=== PATIENT | female | born 1970 | race African-American/Black ===

== ENCOUNTER 2017-05-06 05:02 | Emergency (ER) | payer MEDICAID ==
[2015-08-08 09:00] VITALS: BMI 17.7
[~2017-05-06 05:02] MED LIST: ADVIL PM CAPLET1 TAB PO; ATIVAN0.5 MG PO; KLONOPIN0.5 MG PO
== END 2017-05-06 06:15 | disposition home or self-care (01) ==
LOC: D.ER 05:02
DX: S93.401A Sprain of unspecified ligament of right ankle, initial encounter (principal); X58.XXXA Exposure to other specified factors, initial encounter; Y93.89 Activity, other specified; Y92.019 Unspecified place in single-family (private) house as the place of occurrence of the external cause

== ENCOUNTER 2017-09-14 09:39 | Emergency (ER) | payer MEDICAID ==
[2015-08-08 09:00] VITALS: BMI 17.7
== END 2017-09-14 11:29 | disposition home or self-care (01) ==
LOC: D.ER 09:39
DX: M25.511 Pain in right shoulder (principal); S59.901A Unspecified injury of right elbow, initial encounter; W19.XXXA Unspecified fall, initial encounter; Y93.89 Activity, other specified; Y92.89 Other specified places as the place of occurrence of the external cause; S69.91XA Unspecified injury of right wrist, hand and finger(s), initial encounter; F17.200 Nicotine dependence, unspecified, uncomplicated

== ENCOUNTER 2017-10-31 02:57 | Emergency (ER) | payer MEDICAID ==
[2015-08-08 09:00] VITALS: BMI 17.7
[2017-10-31 03:33] LABS: APPEARANCE CLEAR (CLEAR); BILIRUBIN NEGATIVE (NEGATIVE); COLOR YELLOW (YELLOW); GLUCOSE NEGATIVE (NEGATIVE); KETONE NEGATIVE (NEGATIVE); NITRITE NEGATIVE (NEGATIVE); PROTEIN NEGATIVE (NEGATIVE); SPECIFIC GRAVITY 1.015 (1.005-1.020); UROBILINOGEN NORMAL (NORMAL)
[2017-10-31 03:40] LABS: HCG URINE NEGATIVE (NEGATIVE)
[2017-10-31 03:47] LABS: UDS - AMPHET NEGATIVE QUAL (NEGATIVE); UDS - BARB NEGATIVE QUAL (NEGATIVE); UDS - BENZO POSITIVE QUAL (NEGATIVE); UDS - COCAINE NEGATIVE QUAL (NEGATIVE); UDS - OPIATE NEGATIVE QUAL (NEGATIVE); UDS - PCP NEGATIVE QUAL (NEGATIVE); UDS - THC NEGATIVE QUAL (NEGATIVE)
[2017-10-31 03:53] LABS: BASOPHILS 0.2 % (0-2); HEMATOCRIT 42.2 % (36.0-48.0); HEMOGLOBIN 14.1 g/dL (12-16); IMMATURE GRANULOCYTES 0.2 % (0-5); LYMPHOCYTES 49.4 % (15-50); MCH 33.9 pg (26.0-34.0); MCHC 33.4 g/dL (31.0-37.0); MCV 101.4 fL (80.0-100.0); MONOCYTES 5.6 % (2-11); NEUTROPHILS 43.6 % (40-80); PLATELET COUNT 307 10x3/uL (130-400); RBC 4.16 10x6/uL (4.00-5.40); RDW 14.4 % (11.5-14.5); WBC 8.2 10x3/uL (4.8-10.8)
[2017-10-31 04:04] LABS: ALBUMIN 3.5 g/dL (3.4-5.0); ALKALINE PHOSPHATASE 166 U/L (46-116); ALT (SGPT) 111 U/L (10-68); BILIRUBIN - TOTAL 0.25 mg/dL (0.2-1.3); CALC OSMOLALITY 264 mosm/kg (275-300); CALCIUM 9.2 mg/dL (8.5-10.1); CARBON DIOXIDE 29.8 mmol/L (21.0-32.0); CHLORIDE - SERUM 102 mmol/L (98-107); CREATININE - SERUM 0.6 mg/dL (0.6-1.3); GLUCOSE 105 mg/dL (74-106); POTASSIUM - SERUM 3.5 mmol/L (3.5-5.1); PROTEIN - SERUM 8.4 g/dL (6.4-8.2); SALICYLATES 4.2 mg/dL (2.8-20.0); SODIUM 134 mmol/L (136-145); UREA NITROGEN 4 mg/dL (7-18); eGFR NON AFRICAN AMERICAN > 90 mL/min (90-120)
[2017-10-31 04:08] LABS: LITHIUM 0.08 mmol/L (0.60-1.20)
== END 2017-10-31 10:46 | disposition home or self-care (01) ==
LOC: D.ER 02:57
PROVIDERS: Family Medicine
DX: F32.9 Major depressive disorder, single episode, unspecified (principal); F10.129 Alcohol abuse with intoxication, unspecified; F17.200 Nicotine dependence, unspecified, uncomplicated

== ENCOUNTER 2017-11-03 10:54 | Emergency (ER) | payer MEDICAID ==
[2015-08-08 09:00] VITALS: BMI 17.7
[2017-11-03 11:15] LABS: APPEARANCE CLEAR (CLEAR); BILIRUBIN NEGATIVE (NEGATIVE); COLOR YELLOW (YELLOW); GLUCOSE NEGATIVE (NEGATIVE); KETONE NEGATIVE (NEGATIVE); NITRITE NEGATIVE (NEGATIVE); PROTEIN NEGATIVE (NEGATIVE); SPECIFIC GRAVITY 1.015 (1.005-1.020); UROBILINOGEN NORMAL (NORMAL)
[2017-11-03 11:18] LABS: BASOPHILS 0.4 % (0-2); HEMATOCRIT 42.4 % (36.0-48.0); HEMOGLOBIN 13.7 g/dL (12-16); IMMATURE GRANULOCYTES 0.3 % (0-5); LYMPHOCYTES 32.6 % (15-50); MCH 33.4 pg (26.0-34.0); MCHC 32.3 g/dL (31.0-37.0); MCV 103.4 fL (80.0-100.0); MEAN PLATELET VOLUME 10.4 fL (7.4-10.4); MONOCYTES 5.2 % (2-11); NEUTROPHILS 60.5 % (40-80); RDW 14.7 % (11.5-14.5); WBC 7.8 10x3/uL (4.8-10.8)
[2017-11-03 11:20] LABS: PLATELET COUNT 218 10x3/uL (130-400)
[2017-11-03 11:20] LABS: UDS - AMPHET NEGATIVE QUAL (NEGATIVE); UDS - BARB NEGATIVE QUAL (NEGATIVE); UDS - BENZO POSITIVE QUAL (NEGATIVE); UDS - COCAINE NEGATIVE QUAL (NEGATIVE); UDS - OPIATE NEGATIVE QUAL (NEGATIVE); UDS - PCP NEGATIVE QUAL (NEGATIVE); UDS - THC NEGATIVE QUAL (NEGATIVE)
[2017-11-03 11:35] LABS: ALBUMIN 3.4 g/dL (3.4-5.0); ALKALINE PHOSPHATASE 176 U/L (46-116); ALT (SGPT) 209 U/L (10-68); BILIRUBIN - TOTAL 0.26 mg/dL (0.2-1.3); CALC OSMOLALITY 275 mosm/kg (275-300); CALCIUM 8.7 mg/dL (8.5-10.1); CARBON DIOXIDE 26.5 mmol/L (21.0-32.0); CHLORIDE - SERUM 102 mmol/L (98-107); CREATININE - SERUM 0.7 mg/dL (0.6-1.3); GLUCOSE 82 mg/dL (74-106); POTASSIUM - SERUM 3.6 mmol/L (3.5-5.1); PROTEIN - SERUM 8.3 g/dL (6.4-8.2); SODIUM 139 mmol/L (136-145); UREA NITROGEN 9 mg/dL (7-18); eGFR NON AFRICAN AMERICAN > 90 mL/min (90-120)
[2017-11-03 11:45] LABS: THYROID STIMULATING HORMONE 1.38 uIU/mL (0.36-3.74)
== END 2017-11-03 16:09 | disposition short-term general hospital (02) ==
LOC: D.ER 10:54
PROVIDERS: Family Medicine
DX: R45.851 Suicidal ideations (principal); F33.9 Major depressive disorder, recurrent, unspecified; F41.9 Anxiety disorder, unspecified; F10.129 Alcohol abuse with intoxication, unspecified; Z86.59 Personal history of other mental and behavioral disorders

== ENCOUNTER 2018-04-06 10:07 | Emergency (ER) | payer MEDICAID ==
[2018-04-06 10:18] VITALS: Ht 160 cm
[2018-04-06 10:51] LABS: UDS - AMPHET NEGATIVE QUAL (NEGATIVE); UDS - BARB NEGATIVE QUAL (NEGATIVE); UDS - BENZO NEGATIVE QUAL (NEGATIVE); UDS - COCAINE NEGATIVE QUAL (NEGATIVE); UDS - OPIATE NEGATIVE QUAL (NEGATIVE); UDS - PCP NEGATIVE QUAL (NEGATIVE); UDS - THC POSITIVE QUAL (NEGATIVE)
[2018-04-06 11:01] LABS: HCG SERUM NEGATIVE (NEGATIVE)
[2018-04-06 11:05] LABS: ALBUMIN 3.5 g/dL (3.4-5.0); ALKALINE PHOSPHATASE 87 U/L (46-116); ALT (SGPT) 94 U/L (10-68); BILIRUBIN - TOTAL 0.17 mg/dL (0.2-1.3); CALC OSMOLALITY 280 mosm/kg (275-300); CARBON DIOXIDE 29.4 mmol/L (21.0-32.0); CHLORIDE - SERUM 103 mmol/L (98-107); CREATININE - SERUM 0.6 mg/dL (0.6-1.3); GLUCOSE 88 mg/dL (74-106); POTASSIUM - SERUM 3.3 mmol/L (3.5-5.1); PROTEIN - SERUM 8.2 g/dL (6.4-8.2); SODIUM 141 mmol/L (136-145); UREA NITROGEN 15 mg/dL (7-18); eGFR NON AFRICAN AMERICAN > 90 mL/min (90-120)
[2018-04-06 11:11] LABS: APPEARANCE HAZY (CLEAR); BILIRUBIN NEGATIVE (NEGATIVE); COLOR YELLOW (YELLOW); GLUCOSE NEGATIVE (NEGATIVE); KETONE NEGATIVE (NEGATIVE); NITRITE NEGATIVE (NEGATIVE); PROTEIN NEGATIVE (NEGATIVE); SPECIFIC GRAVITY 1.015 (1.005-1.020); UROBILINOGEN NORMAL (NORMAL)
[2018-04-06 11:26] LABS: BASOPHILS 0.3 % (0-2); HEMATOCRIT 40.5 % (36.0-48.0); HEMOGLOBIN 13.3 g/dL (12-16); IMMATURE GRANULOCYTES 0.1 % (0-5); LYMPHOCYTES 31.4 % (15-50); MCH 32.5 pg (26.0-34.0); MCHC 32.8 g/dL (31.0-37.0); MONOCYTES 7.6 % (2-11); NEUTROPHILS 59.6 % (40-80); RBC 4.09 10x6/uL (4.00-5.40); RDW 13.6 % (11.5-14.5); WBC 8.8 10x3/uL (4.8-10.8)
[2018-04-06 11:27] LABS: PLATELET COUNT 279 10x3/uL (130-400)
[2018-04-06 14:01] VITALS: BP 140/092
== END 2018-04-06 14:04 ==
LOC: D.ER 10:07
PROVIDERS: Emergency Medicine
DX: R45.851 Suicidal ideations (principal); F41.9 Anxiety disorder, unspecified; F32.9 Major depressive disorder, single episode, unspecified; F17.200 Nicotine dependence, unspecified, uncomplicated

== ENCOUNTER 2018-05-06 11:02 | Emergency (ER) | payer MEDICAID ==
[~2018-05-06] VITALS: Ht 160 cm; Wt 51.4 kg
[2018-05-06 11:11] VITALS: BP 123/79; Ht 160 cm; Wt 51.4 kg
[2018-05-06 11:31] LABS: UDS - AMPHET NEGATIVE QUAL (NEGATIVE); UDS - BARB NEGATIVE QUAL (NEGATIVE); UDS - BENZO NEGATIVE QUAL (NEGATIVE); UDS - COCAINE NEGATIVE QUAL (NEGATIVE); UDS - OPIATE NEGATIVE QUAL (NEGATIVE); UDS - PCP NEGATIVE QUAL (NEGATIVE); UDS - THC POSITIVE QUAL (NEGATIVE)
[2018-05-06 11:34] LABS: APPEARANCE CLOUDY (CLEAR); COLOR YELLOW (YELLOW)
[2018-05-06 11:35] LABS: GLUCOSE NEGATIVE (NEGATIVE); KETONE MODERATE mg/dL (NEGATIVE); NITRITE NEGATIVE (NEGATIVE); PROTEIN 1+ mg/dL (NEGATIVE); SPECIFIC GRAVITY 1.025 (1.005-1.020)
[2018-05-06 11:36] LABS: BILIRUBIN 2+ (NEGATIVE)
[2018-05-06 11:38] LABS: EPITHELIAL CELLS 0-5 /hpf (0-5); WHITE CELLS - URINE 0-5 /hpf (0-5)
[2018-05-06 11:39] LABS: BACTERIA NONE SEEN /hpf (NONE SEEN)
[2018-05-06 12:10] LABS: BASOPHILS 0.2 % (0-2); EOSINOPHILS 0.3 % (0-7); HEMATOCRIT 38.5 % (36.0-48.0); HEMOGLOBIN 12.9 g/dL (12-16); IMMATURE GRANULOCYTES 0.2 % (0-5); LYMPHOCYTES 21.9 % (15-50); MCH 32.7 pg (26.0-34.0); MCHC 33.5 g/dL (31.0-37.0); MCV 97.7 fL (80.0-100.0); MEAN PLATELET VOLUME 11.1 fL (7.4-10.4); NEUTROPHILS 67.4 % (40-80); RBC 3.94 10x6/uL (4.00-5.40); RDW 13.3 % (11.5-14.5); WBC 14.5 10x3/uL (4.8-10.8)
[2018-05-06 12:18] LABS: PLATELET COUNT 192 10x3/uL (130-400)
[2018-05-06 12:24] LABS: ALBUMIN 3.7 g/dL (3.4-5.0); ALKALINE PHOSPHATASE 103 U/L (46-116); ALT (SGPT) 87 U/L (10-68); BILIRUBIN - TOTAL 0.39 mg/dL (0.2-1.3); CALC OSMOLALITY 273 mosm/kg (275-300); CHLORIDE - SERUM 101 mmol/L (98-107); CREATININE - SERUM 0.6 mg/dL (0.6-1.3); GLUCOSE 79 mg/dL (74-106); POTASSIUM - SERUM 3.9 mmol/L (3.5-5.1); PROTEIN - SERUM 8.9 g/dL (6.4-8.2); SODIUM 137 mmol/L (136-145); UREA NITROGEN 16 mg/dL (7-18); eGFR NON AFRICAN AMERICAN > 90 mL/min (90-120)
[2018-05-06 12:31] LABS: CREATINE KINASE 426 UL (21-215); PRO BNP 96 pg/mL (0-125); TROPONIN-I < 0.017 ng/mL (0.000-0.060); VALPROIC ACID (DEPAKOTE) 31.6 ug/mL (50.0-100.0)
== END 2018-05-06 16:05 | disposition home or self-care (01) ==
LOC: D.ER 11:02
PROVIDERS: Family Medicine
DX: T67.5XXA Heat exhaustion, unspecified, initial encounter (principal); X58.XXXA Exposure to other specified factors, initial encounter; Y93.89 Activity, other specified; Y92.89 Other specified places as the place of occurrence of the external cause; R07.9 Chest pain, unspecified; F41.9 Anxiety disorder, unspecified; K86.1 Other chronic pancreatitis; F17.200 Nicotine dependence, unspecified, uncomplicated

== ENCOUNTER 2018-09-23 18:45 | Emergency (ER) | payer MEDICAID ==
[~2018-09-23] VITALS: Ht 160 cm; Wt 54.5 kg
[2018-09-23 19:02] VITALS: Ht 160 cm; Wt 54.5 kg
[2018-09-23 19:30] LABS: UDS - AMPHET POSITIVE QUAL (NEGATIVE); UDS - BARB NEGATIVE QUAL (NEGATIVE); UDS - BENZO NEGATIVE QUAL (NEGATIVE); UDS - COCAINE NEGATIVE QUAL (NEGATIVE); UDS - OPIATE NEGATIVE QUAL (NEGATIVE); UDS - PCP NEGATIVE QUAL (NEGATIVE); UDS - THC POSITIVE QUAL (NEGATIVE)
[2018-09-23 19:32] LABS: APPEARANCE CLOUDY (CLEAR); BACTERIA FEW /hpf (NONE SEEN); BILIRUBIN 3+ (NEGATIVE); COLOR YELLOW (YELLOW); EPITHELIAL CELLS 0-5 /hpf (0-5); GLUCOSE NEGATIVE (NEGATIVE); KETONE LARGE mg/dL (NEGATIVE); NITRITE NEGATIVE (NEGATIVE); PROTEIN 2+ mg/dL (NEGATIVE); RED CELLS - URINE 0-5 /hpf (0-5); UROBILINOGEN NORMAL (NORMAL)
[2018-09-23 19:35] LABS: BASOPHILS 0.1 % (0-2); EOSINOPHILS 0.2 % (0-7); HEMOGLOBIN 12.8 g/dL (12-16); IMMATURE GRANULOCYTES 0.3 % (0-5); LYMPHOCYTES 25.7 % (15-50); MCH 33.1 pg (26.0-34.0); MCHC 33.7 g/dL (31.0-37.0); MCV 98.2 fL (80.0-100.0); MEAN PLATELET VOLUME 9.7 fL (7.4-10.4); MONOCYTES 11.6 % (2-11); NEUTROPHILS 62.1 % (40-80); RBC 3.87 10x6/uL (4.00-5.40); RDW 13.8 % (11.5-14.5); WBC 15.4 10x3/uL (4.8-10.8)
[2018-09-23 19:43] LABS: PLATELET COUNT 280 10x3/uL (130-400)
[2018-09-23 19:49] LABS: ALBUMIN 3.7 g/dL (3.4-5.0); ANION GAP 21.7 mmol/L (8-16); BILIRUBIN - TOTAL 0.57 mg/dL (0.2-1.3); CALCIUM 9.3 mg/dL (8.5-10.1); CARBON DIOXIDE 21.5 mmol/L (21.0-32.0); CREATININE - SERUM 1.2 mg/dL (0.6-1.3); MAGNESIUM - SERUM 1.8 mg/dL (1.8-2.4); POTASSIUM - SERUM 3.2 mmol/L (3.5-5.1); PROTEIN - SERUM 9.1 g/dL (6.4-8.2)
[2018-09-23] MEDS ORDERED: MACROBID100 MG PO (20:04)
[2018-09-24 14:23] VITALS: BP 86/62
== END 2018-09-24 15:36 ==
LOC: D.ER 18:45
PROVIDERS: Emergency Medicine
DX: R45.851 Suicidal ideations (principal); N39.0 Urinary tract infection, site not specified; F20.0 Paranoid schizophrenia; F17.200 Nicotine dependence, unspecified, uncomplicated

== ENCOUNTER 2019-03-26 11:59 | Emergency (ER) | payer MEDICAID ==
[~2019-03-26] VITALS: Ht 160 cm; Wt 65.9 kg
[~2019-03-26 11:59] MED LIST changes: +MACROBID100 MG PO
[2019-03-26 12:06] VITALS: Ht 160 cm; Wt 65.9 kg
[2019-03-26] MEDS ORDERED: KENALOG 0.1 % 115 GM TOPICAL (14:12)
[2019-03-26] MEDS ORDERED: ATARAX 25 MG TA25 MG PO (14:12)
[2019-03-26] MEDS ORDERED: PREDNISONE20 MG PO (14:12)
[2019-03-26 14:40] VITALS: BP 133/92
== END 2019-03-26 14:41 | disposition home or self-care (01) ==
LOC: D.ER 11:59
DX: L30.9 Dermatitis, unspecified (principal)

== ENCOUNTER 2019-12-25 16:28 | Emergency (ER) | payer MEDICAID ==
[~2019-12-25] VITALS: Ht 160 cm; Wt 56.4 kg
[~2019-12-25 16:28] MED LIST changes: +ATARAX 25 MG TA25 MG PO; +KENALOG 0.1 % 115 GM TOPICAL; +PREDNISONE20 MG PO
[2019-12-25 16:47] VITALS: Ht 160 cm; Wt 56.4 kg
[2019-12-25] MEDS ORDERED: SEROQUEL50 MG PO (16:49)
[2019-12-25] MEDS ORDERED: DEPAKOTE250 MG PO (16:49)
[2019-12-25 18:26] VITALS: BP 1321/68
== END 2019-12-25 18:27 | disposition home or self-care (01) ==
LOC: D.ER 16:28
DX: J02.9 Acute pharyngitis, unspecified (principal); R49.0 Dysphonia; M25.552 Pain in left hip; W19.XXXA Unspecified fall, initial encounter; Y93.9 Activity, unspecified; Y92.9 Unspecified place or not applicable; Z72.0 Tobacco use

== ENCOUNTER 2020-02-21 22:08 | Emergency (ER) | payer MEDICAID ==
[~2020-02-21] VITALS: Ht 160 cm; Wt 59.0 kg
[~2020-02-21 22:08] MED LIST changes: +DEPAKOTE250 MG PO; +SEROQUEL50 MG PO
[2020-02-21 22:25] VITALS: Ht 160 cm; Wt 59.0 kg
[2020-02-21 23:04] LABS: BASOPHILS 0.3 % (0-2); EOSINOPHILS 2.5 % (0-7); HEMATOCRIT 38.2 % (36.0-48.0); HEMOGLOBIN 12.3 g/dL (12-16); IMMATURE GRANULOCYTES 0.3 % (0-5); LYMPHOCYTES 50.8 % (15-50); MCH 30.9 pg (26.0-34.0); MCHC 32.2 g/dL (31.0-37.0); MEAN PLATELET VOLUME 9.8 fL (7.4-10.4); MONOCYTES 6.8 % (2-11); NEUTROPHILS 39.3 % (40-80); PLATELET COUNT 315 10x3/uL (130-400); RBC 3.98 10x6/uL (4.00-5.40); RDW 13.5 % (11.5-14.5); WBC 9.3 10x3/uL (4.8-10.8)
[2020-02-21 23:04] LABS: UDS - AMPHET NEGATIVE QUAL (NEGATIVE); UDS - BARB NEGATIVE QUAL (NEGATIVE); UDS - BENZO NEGATIVE QUAL (NEGATIVE); UDS - COCAINE NEGATIVE QUAL (NEGATIVE); UDS - OPIATE NEGATIVE QUAL (NEGATIVE); UDS - PCP NEGATIVE QUAL (NEGATIVE); UDS - THC POSITIVE QUAL (NEGATIVE)
[2020-02-21 23:13] LABS: BILIRUBIN NEGATIVE (NEGATIVE); GLUCOSE NEGATIVE (NEGATIVE); KETONE NEGATIVE (NEGATIVE); NITRITE NEGATIVE (NEGATIVE); SPECIFIC GRAVITY 1.005 (1.005-1.020); UROBILINOGEN NORMAL (NORMAL)
[2020-02-21 23:22] LABS: CALC OSMOLALITY 278 mosm/kg (275-300); CALCIUM 9.1 mg/dL (8.5-10.1); CARBON DIOXIDE 25.9 mmol/L (21.0-32.0); CHLORIDE - SERUM 104 mmol/L (98-107); CREATININE - SERUM 0.7 mg/dL (0.6-1.3); GLUCOSE 97 mg/dL (74-106); POTASSIUM - SERUM 3.9 mmol/L (3.5-5.1); SODIUM 140 mmol/L (136-145); UREA NITROGEN 12 mg/dL (7-18); eGFR NON AFRICAN AMERICAN > 90 mL/min (90-120)
[2020-02-21 23:29] LABS: ALBUMIN 3.7 g/dL (3.4-5.0); ALKALINE PHOSPHATASE 144 U/L (30-120); ALT (SGPT) 76 U/L (10-68); BILIRUBIN - TOTAL 0.12 mg/dL (0.2-1.3); PROTEIN - SERUM 8.8 g/dL (6.4-8.2)
--- NOTE | 2020-02-21 23:33 | NUR ---
DR GONG NOTIFIED AND SITTER ORDERED, SITTER AT BEDSIDE. NOTIFIED CHARGE NURSE AND ATTENDING IN REGARDS TO ASSESSMENT FINDINGS. RESOURCES GIVEN TO PT AND SAFETY PLAN INITIATED.
[2020-02-22 04:17] VITALS: BP 96/67
== END 2020-02-22 23:50 ==
LOC: D.ER 22:08
PROVIDERS: Family Medicine
DX: R45.851 Suicidal ideations (principal); F10.129 Alcohol abuse with intoxication, unspecified; Y90.8 Blood alcohol level of 240 mg/100 ml or more